=== PATIENT | female | born 1950 | race Caucasian/White ===

== ENCOUNTER → 2024-10-21 | Outpatient (REF) | payer BC ==
[~2024-10-21] MED LIST: ASPI81TA26 PO; BASA100I INJ; CALC1CAP31 PO; CARV3.12 PO; CITA10TA7 PO; D3 S1CAP PO; ISOS1TAB35 PO; LEVO100T5 PO; OMEG10002 PO; OMEP-173 PO; SIMV40TA20 PO; SODI650T PO; TAMS1CAP17 PO
[2024-10-21 18:37] LABS: HEPATITIS B SURFACE ANTIBODY NEGATIVE (POSITIVE)
[2024-10-21 18:48] LABS: HEPATITIS B SURFACE ANTIGEN NEGATIVE (NEGATIVE)
[2024-10-21 19:09] LABS: HEPATITIS C VIRUS ABY INDEX 0.07 INDEX (<0.8)
[2024-10-21 19:10] LABS: HEPATITIS B CORE ANTIBODY IGM NEGATIVE (NEGATIVE)
== END ==
LOC: M LAB REF 16:56
PROVIDERS: ATTEND Internal Medicine Nephrology
DX: N18.6 End stage renal disease (principal)